=== PATIENT | female | born 1980 | race Caucasian/White ===

== ENCOUNTER → 2017-12-23 | Outpatient (CLI) | payer OTHER ==
[~2017-12-23] MED LIST: CEPH-13 PO; PREN-127 PO
[2017-12-23 14:57] LABS: PLATELET COUNT, AUTOMATED 309 K/uL (150-450)
== END ==
LOC: LAB 14:03
PROVIDERS: ATTEND Obstetrics & Gynecology
DX: Z34.91 Encounter for supervision of normal pregnancy, unspecified, first trimester (principal)
CPT/HCPCS: 36415; 81025; 85025; 86592; 86762; 86850; 86900; 86901; 87088; 87340

== ENCOUNTER → 2018-03-27 | Outpatient (CLI) | payer OTHER ==
--- NOTE | 2018-03-27 17:56 | RADIOLOGY IMAGING REPORT ---
FACILITY: [facility] PATIENT NAME: Brielle Jc : 1980 MR: [id number] V: [id number] EXAM DATE: ORDERING PHYSICIAN: KARSTEN PECK TECHNOLOGIST: Location: [facility] [place] Patient: Brielle Jc : 1980 Visit/Account:[id number] Date of Sevice: 03/27/2018 EXAMINATION: Transabdominal OB Ultrasound >14 wks with Anatomic Survey 03/27/2018 11:04 AM History: OB anatomical survey COMPARISON: None FINDINGS: Intrauterine gestations: one presentation: breech heart rate: 139 bpm Amniotic fluid index: 17.0 cm Largest amniotic fluid pocket 5.6 cm Placenta: Posterior without previa. Placental cord insertion is normal. Uterus: gravid, otherwise normal Maternal adnexa: negative Cervix: Closed, 4.6 cm Gestational Parameters: BPD: 4.8 cm 20 weeks 5 days HC: 18.6 cm 21 weeks 0 days AC: 16.1 cm 20 weeks 2 days FL: 3.5 cm 21 weeks 0 days Average ultrasound age (AUA): 1 week 0 days Estimated gestational age by LMP: 20 weeks 6 days Estimated weight (EFW): 396 grams +/- 58 grams EFW for LMP percentile: 56 Anatomic Survey: Intracranial structures, nose and lips, 4-chamber heart and outflow tracts, stomach, kidneys, urinary bladder, spine, 3-vessel cord and cord insertion are unremarkable. Two upper and two lower extremiti es visualized. IMPRESSION: 1. Single live intrauterine gestation; estimated ultrasound age 20 weeks 0 days (EVELYN 08/07/2018) whic h correlates well with expected dates. 2. Unremarkable anatomic survey. Report Dictated By: Angel Christy MD at 03/27/2018 5:49 PM Report E-Signed By: Angel Christy MD at 03/27/2018 5:53 PM WSN:ANGEL
== END ==
LOC: RAD 10:55
PROVIDERS: ATTEND Obstetrics & Gynecology
DX: Z02.9 Encounter for administrative examinations, unspecified (principal)
CPT/HCPCS: 76811

== ENCOUNTER → 2018-05-13 | Outpatient (CLI) | payer OTHER ==
[2018-05-13 15:03] LABS: PLATELET COUNT, AUTOMATED 249 K/uL (150-450)
== END ==
LOC: LAB 07:50
PROVIDERS: ATTEND Obstetrics & Gynecology
DX: O09.519 Supervision of elderly primigravida, unspecified trimester (principal)
CPT/HCPCS: 36415; 82950; 85025

== ENCOUNTER 2018-07-09 01:48 | Inpatient (IN) | payer OTHER ==
[~2018-07-09] VITALS: Ht 162.6 cm; Wt 70.3 kg
[~2018-07-09 01:48] MED LIST changes: +DIPH0.5D12 IM; +FLU60SYR36 IM
[2018-07-09] MEDS ORDERED: LR(*) 1000 ML BAG 1,000 ML IV PRN (01:50)
[2018-07-09 02:30] VITALS: BP 123/88; Ht 162.6 cm; Wt 70.3 kg
[2018-07-09] MEDS: LR(*) 1000 ML BAG 1,000 ML IV SCH ×2 (02:50→07:53)
[2018-07-09] MEDS ORDERED: fentaNYL CITR 100 MCG/2 ML AMP IVP PRN (02:50)
[2018-07-09] MEDS ORDERED: LIDOCAINE/SOD BICARB 8.4% SYR SC PRN (02:50)
[2018-07-09] MEDS ORDERED: ceFAZolin(*) 2GM/D5W 50ML 50 ML IVPB PRN (02:50)
[2018-07-09] MEDS ORDERED: FAMOTIDINE(*) 20MG/50ML PREMIX 50 ML IVPB PRN (02:50)
[2018-07-09] MEDS ORDERED: OXYTOCIN 30 UNIT/D5LR 500 ML 500 ML IV PRN (02:50)
[2018-07-09] MEDS ORDERED: METOCLOPRAMIDE 10 MG/2 ML SDV IVP PRN (02:50)
[2018-07-09] MEDS ORDERED: PENICILLIN G 5 MILLUN/100 ML 100 ML IVPB ONE (02:50)
[2018-07-09] MEDS ORDERED: LIDOCAINE 1% LOCAL 300 MG/30ML INJ PRN (02:50)
[2018-07-09] MEDS ORDERED: PENICILLIN G 5 MILLUN/100 ML 100 ML ONE (02:57)
[2018-07-09] MEDS ORDERED: BETAMETHASONE/ACETATE 6 MG/1ML ONE (03:04)
[2018-07-09 03:17] LABS: PLATELET COUNT, AUTOMATED 232 K/uL (150-450)
--- NOTE | 2018-07-09 03:40 | History & Physical ---
History of Present Illness EDC per LMP: Aug 08, 2018 Estimated Gestational Age: 35.5 Chief Complaint Leaking fluid History of Present Illness 37-year-old at 35w5d with ROM. She noticed a change in her discharge at 2230hrs last night. She then woke up with watery discharge at 0100hrs today. She is feeling cramping. She denies vaginal bleeding. She reports movement. PNC by IMG. PNR reviewed. complicated by AMA - cfDNA testing was normal with a female fetus. History Patient's Blood Type: A Positive Rubella Status: Immune Group B Strep Screen: Unknown Obstetrical History: Primip Past Medical History: None Allergies: Coded Allergies: No Known Drug Allergies (Unverified , 03/19/15) Social History: No T/E/D. Partner involved and supportive. Family History: FH: breast cancer MOTHER (at age 52) FH: cardiovascular disease MOTHER FH: hypertension FATHER High cholesterol FATHER MOTHER Med Rec Home Meds Reported Medications Vits W-Ca,Fe,Fa(<1MG) ( VITAMINS) 1 Each Tablet, 1 EACH PO DAILY, TAB 12/23/17 Review of Systems Constitutional: No Fever Eyes: No Vision Change Cardiovascular: No Chest Pain Respiratory: Cough; No Shortness of Breath, No Wheezing Gastrointestinal: No Nausea, No Vomiting, No Diarrhea Genitourinary: No Dysuria Musculoskeletal: No Pain Psychiatric: Anxiety; No Depression Exam General Exam Vital Signs Vital Signs Date Time Temp Pulse Resp B/P (MAP) Pulse Ox O2 Delivery O2 Flow Rate FiO2 07/09/18 02:30 97.8 90 18 123/88 (100) 97 Room Air General Apperance: Alert/Awake/No Acute Distress Neuro: No Gross deficits Eyes: Normal Extraocular Movement & Vison Cardiovascular: Regular Rate and Rhythm Respiratory: Clear to Auscultation Abdomen: Gravid - Non-Tender : Normal Musculoskeletal: No Weakness/Pain Extremities: No Cyanosis,Clubbing or Edema Integumentary: Skin Intact without Lesions or Rash Psychological: Alert & Oriented X3, Appropriate Mood & Affect Vaginal Discharge/Fluid?: Clear Fluid Cervical Dialation: 3 Cervical Effacement (%): 80 Cervical Consistency: Moderate Cervical Position: Posterior Station: -2 Presentation: Vertex Uterine Contractions(Q min): 4 Uterine Contraction Strength: Mild UC Resting Tone: Soft Fetus Feeling Movement?: Yes FHT Category: I Medical Decision Making Data Points Result Diagram: 07/09/18 0301 Pre-Admit Course Medical Record Review: Yes VTE Prophylasis: Adult Deep Vein Thrombosis/Pulmonary: No Pharmacological Contraindicati: Pt at Low Risk for VTE Mechanical Contraindications: Pt at Low Risk for VTE Assessment and Plan Problems: (1) premature rupture of membranes (PPROM) with unknown onset of labor Assessment & Plan: 37-year-old at 35w5d with ROM. She is chan although not painfully. She has accepted GBS prophylaxis and betamethasone for the baby. Discussed plan to proceed with expectant management initially today. Her boyfriend is in [place] and has changed his flight to arrive in [place] at 1400hrs today. Will augment if needed later. (2) 35 weeks gestation of KARSTEN PECK MD Jul 09, 2018 03:40
[2018-07-09] MEDS ORDERED: PENICILLIN G 2.5 MILLUN/100 ML 100 ML IVPB SCH ×2 (07:00)
--- NOTE | 2018-07-09 08:35 | Labor Progress Note ---
Labor Subjective Progress Notes Subjective Her contractions are getting more painful. She has experienced 2 recent episodes of vomiting. Labor Objective Vital Signs Vital Signs Date Time Temp Pulse Resp B/P (MAP) Pulse Ox O2 Delivery O2 Flow Rate FiO2 07/09/18 02:30 97.8 90 18 123/88 (100) 97 Room Air Vaginal Discharge/Fluid?: Clear Fluid Cervical Dialation: 6 Cervical Effacement (%): 100 Cervical Consistency: Soft Cervical Position: Mid Station: 0 Presentation: Vertex Uterine Contractions(Q min): 3 Uterine Contraction Strength: Strong UC Resting Tone: Soft Fetus FHT Category: I General Exam General Appearance: Alert/Awake/No Acute Distress Abdomen: Gravid - Non-Tender Musculoskeletal: No Weakness/Pain Extremities: No Cyanosis,Clubbing or Edema Integumentary: Skin Intact without Lesions or Rash Psychological: Alert & Oriented X3, Appropriate Mood & Affect Other Result Diagram: 07/09/18 0301 Assessment and Plan Problems: (1) premature rupture of membranes (PPROM) with unknown onset of labor Assessment & Plan: Pt is progressing well. Anticipate . (2) 35 weeks gestation of KARSTEN PECK MD Jul 09, 2018 08:35
[2018-07-09] MEDS ORDERED: BETAMETHASONE/ACETATE 6 MG/1ML IM SCH (09:00)
--- NOTE | 2018-07-09 09:57 | Labor Progress Note ---
Labor Subjective Progress Notes Subjective Pt is feeling the urge to push. Labor Objective Vital Signs Vital Signs Date Time Temp Pulse Resp B/P (MAP) Pulse Ox O2 Delivery O2 Flow Rate FiO2 07/09/18 02:30 97.8 90 18 123/88 (100) 97 Room Air Vaginal Discharge/Fluid?: Clear Fluid Cervical Dialation: 10 Station: +3 Presentation: Vertex Uterine Contractions(Q min): 3 Uterine Contraction Strength: Strong UC Resting Tone: Soft Fetus FHT Category: I General Exam General Appearance: Alert/Awake/No Acute Distress Abdomen: Gravid - Non-Tender Extremities: No Cyanosis,Clubbing or Edema Integumentary: Skin Intact without Lesions or Rash Psychological: Alert & Oriented X3, Appropriate Mood & Affect Other Result Diagram: 07/09/18 0301 Assessment and Plan Problems: (1) premature rupture of membranes (PPROM) with unknown onset of labor Assessment & Plan: Pt is complete. She is pushing effectively. Anticipate . (2) 35 weeks gestation of KARSTEN PECK MD Jul 09, 2018 09:57
[2018-07-09] MEDS ORDERED: ACETAMINOPHEN 325 MG TAB PO PRN (10:50)
[2018-07-09] MEDS ORDERED: GLYCERIN/WITCH HAZEL LEAF 1 PK TP PRN (10:50)
[2018-07-09] MEDS ORDERED: LANOLIN OINT 7 GM TUBE TP PRN (10:50)
[2018-07-09] MEDS ORDERED: MAGNESIUM HYDROXIDE* 30ML UDCP PO PRN (10:50)
[2018-07-09] MEDS ORDERED: BENZOCAINE 20% 60 ML BTL TP PRN (10:50)
[2018-07-09] MEDS ORDERED: APAP/HYDROCODONE 325/5 TAB PO PRN (10:50)
[2018-07-09] MEDS ORDERED: HYDROCORTISONE 2.5% CR 30GM TB PR PRN (10:50)
--- NOTE | 2018-07-09 10:53 | OB Delivery Note ---
Delivery Note Vaginal Delivery Type: Spont. Vaginal Delivery Delivery Date: Jul 09, 2018 Delivery Time: 10:22 Estimated Gestational Age(wks): 35.5 Length of Labor Stage II (hrs): 1 Labor Stage III (minutes): 3 Delivery Anesthesia: Local Sex: Female Infant Weight (gms): 2130 (5#12oz) Apgars: 1 Minute (8), 5 Minute (8) Estimated Blood Loss: 200 Notes: Presented with PPROM at 2230hrs on 07/10/18. Progressed on her own to complete at 0930. Fagot Heater in Attendence: Yes KARSTEN PECK MD Jul 09, 2018 10:53
[2018-07-09] MEDS: IBUPROFEN 800 MG TAB PO SCH ×2 (11:40→19:44)
[2018-07-09] MEDS ORDERED: LIDOCAINE 1% LOCAL 300 MG/30ML 30 ML ONE (11:45)
[2018-07-09 14:12] VITALS: BP 120/69
[2018-07-09] MEDS ORDERED: LOR5/325 PO (16:26)
[2018-07-09] MEDS ORDERED: IBUP800T37 PO (16:26)
[2018-07-09 17:40] VITALS: BP 118/69
[2018-07-09 20:30] VITALS: BP 127/74
[2018-07-09] MEDS: DOCUSATE CALCIUM 240 MG CAP PO SCH (21:00)
[2018-07-10 00:10] VITALS: BP 107/56
[2018-07-10 04:50] VITALS: BP 109/65
[2018-07-10 07:27] VITALS: BP 109/61
--- NOTE | 2018-07-10 08:33 | OB/GYN Progress Note ---
OB Subjective Progress Notes Subjective Doing good PPD # 1. Pt reports that she is tolerating PO intake. Ambulatory. Voiding with out any difficulty. Lochia appropriate. seems to be going good. No concerns or questions. Wondering about getting discharged and staying with baby. GI: NEG Nausea, NEG Vomiting, NEG Flatus, NEG Bowel Movement : Voiding Well, Vaginal Bleeding, Scant Pain: Mild, Tolerating PO Pain Meds Neurological: No Headache, No Other Eyes: No Visual Disturbances OB Objective Physical Exam Vital Signs Date Time Temp Pulse Resp B/P (MAP) Pulse Ox O2 Delivery O2 Flow Rate FiO2 07/10/18 07:27 71 16 109/61 (77) Room Air 07/10/18 04:50 98.3 93 Intake and Output 07/10/18 07:00 Intake Total 710 ml Balance 710 ml Intake IV Total 710 ml # Voids 2 General Appearance: Alert/Awake/No Acute Distress Neurological: No Gross deficits Eyes: Normal Extraocular Movement & Vison Cardiovascular: Normal Rhythm & Peripheral Pulses Respiratory: No Respiratory Distress, Clear to Auscultation Abdomen: Fundus Firm Musculoskeletal: No Weakness/Pain Extremities: No Cyanosis,Clubbing or Edema Integumentary: Skin Intact without Lesions or Rash Psychological: Alert & Oriented X3, Appropriate Mood & Affect Result Diagram: 07/09/18 0301 Assessment and Plan SIMONIZER Assessment: Stable Problems: (1) premature rupture of membranes (PPROM) with unknown onset of labor Assessment & Plan: day #1. Patient doing very well reports appropriate lochia and no difficulty with breast-feeding. Infant is having some difficulty staying awake for the entirety of breast-feeding but otherwise fine. Pain control by mouth pain medications. Patient is considering going to rooming in status today. (2) 35 weeks gestation of INDIRA PEÑA DO Jul 10, 2018 08:33
[2018-07-10] MEDS: DOCUSATE CALCIUM 240 MG CAP PO SCH ×2 (08:54→20:27)
[2018-07-10] MEDS ORDERED: MEASLES,MUMP,RUBELLA VAC 0.5ML SUBQ ONE (10:50)
[2018-07-10] MEDS ORDERED: DIPHTH/TETANUS/ACEL. PERTUSSIS IM ONLY ONE (10:50)
[2018-07-10] MEDS ORDERED: INFLUENZA VIRUS VAC 0.5ML SYR IM ONLY ONE (10:50)
[2018-07-10] MEDS: IBUPROFEN 800 MG TAB PO SCH ×2 (11:39→20:27)
--- NOTE | 2018-07-10 13:23 | DELIVERY NOTE ---
DELIVERY DATE: July 09, 2018 SURGEON: Rachelle Burnham MD ANESTHESIOLOGIST: ANESTHESIA: Local infiltration of 1% lidocaine. PREOPERATIVE DIAGNOSIS: Intrauterine at 35 weeks and 5 days presenting with PPROM. POSTOPERATIVE DIAGNOSIS: 1. Intrauterine at 35 weeks and 5 days presenting with PPROM. 2. Delivery of viable female infant at 1022 hours, weighing 5 pounds 12 ounces with Apgars of 8 at one minute and 8 at five minutes. PROCEDURE Spontaneous vaginal delivery. ESTIMATED BLOOD LOSS 200 cc. INDICATIONS This patient is a 37-year-old 1, para 0 who presented at 35 weeks and 5 days of complaints of spontaneous rupture of membranes with clear fluid. She was noted to be 3 cm dilated, 80% effaced and -1 station. She was initiated on Group B strep prophylaxis with Penicillin and administered one dose of betamethasone. She then was allowed to progress on her own and was noted to be complete at 0930 hours, at which time she was allowed to push. She did not elect for any anesthesia. PROCEDURE The patient was properly identified and placed in the dorsal lithotomy position. She was pushing and was able to bring the 's vertex to the perineum. She was able to deliver the 's vertex over an intact perineum in the POWELL position. A nuchal cord was checked but not noted. The anterior shoulder delivered easily followed by the posterior shoulder. The remainder of the infant was then easily delivered. The infant had spontaneous cry and spontaneous movement of all four extremities. The infant's oropharynx and nasopharynx were bulb suctioned. The infant was dried, stimulated and passed to the mother's abdomen, where nursing personnel and Dr. Rodríguez were present. After two minutes, the cord was clamped x2 and cut. Cord blood was then obtained to pass off the table. The placenta subsequently delivered intact spontaneously and was passed off the table. This occurred after starting Pitocin through the IV fluid to help firm the uterus. Examination of the cervix, vaginal vault and perineum revealed a second degree midline laceration, which was repaired using a 3-0 Vicryl after infiltration of 1% lidocaine without epinephrine. The patient tolerated the procedure well and recovered in Labor and Delivery with her infant. AREN
[2018-07-10 14:30] VITALS: BP 103/55
--- NOTE | 2018-07-10 16:48 | OB/GYN Discharge Summary ---
INDIRA PEÑA DO 07/10/18 1648: Discharge Summary Reason for Hosp/Final Diag: (1) premature rupture of membranes (PPROM) with unknown onset of labor Hospital Course & Plan: Patient presented to the labor and delivery unit with a chief complaint of loss of fluid. Patient was found to have premature rupture membranes. Patient was given betamethasone was started on penicillin for GBS prophylaxis. Patient was never augmented with Pitocin and did spontaneously began chan and eventually delivered a liveborn female infant. See delivery note for details procedure patient remained in the hospital for 2 days where she was meeting goals and guidelines and was discharged to rooming status with her premature . Patient to follow up with Dr. Burnham in 2-3 weeks. (2) 35 weeks gestation of Lates Vital Signs Vital Signs Date Time Temp Pulse Resp B/P (MAP) Pulse Ox O2 Delivery O2 Flow Rate FiO2 07/10/18 14:30 75 16 103/55 (71) Room Air 07/10/18 04:50 98.3 93 Weight (Pounds): 155 Result Diagram: 07/09/18 030 Condition: Improved Home Meds Active Scripts Hydrocodone Bit/Acetaminophen (HYDROCODON-ACETAMINOPHEN 5-325) 1 Each Tablet, 1 EACH PO Q4-6H PRN for pain, #20 TAB 0 Refills Prov:KARSTEN BURNHAM MD 07/09/18 Ibuprofen (IBUPROFEN) 800 Mg Tablet, 1 TAB PO Q8H PRN for pain, #30 TAB 0 Refills TAKE WITH FOOD EVERY 8 HOURS Prov:KARSTEN BURNHAM MD 07/09/18 Reported Medications Vits W-Ca,Fe,Fa(<1MG) ( VITAMINS) 1 Each Tablet, 1 EACH PO DAILY, TAB 12/23/17 Follow up with: [facility] [place] [phone], Dr. Burnham [phone] Follow up in: 2 wks PO Discharge Diet: As Tolerates, Resume Prior Admit Diet, Increase Fluid Intake Discharge Activity: As Tolerates, Pelvic Rest COSME OSWALD 07/11/18 1150: Discharge Summary Result Diagram: 07/09/18 0301 Discharge: Self Half-Way Meds Active Scripts Hydrocodone Bit/Acetaminophen (HYDROCODON-ACETAMINOPHEN 5-325) 1 Each Tablet, 1 EACH PO Q4-6H PRN for pain, #20 TAB 0 Refills Prov:KARSTEN BURNHAM MD 07/09/18 Ibuprofen (IBUPROFEN) 800 Mg Tablet, 1 TAB PO Q8H PRN for pain, #30 TAB 0 Refills TAKE WITH FOOD EVERY 8 HOURS Prov:KARSTEN BURNHAM MD 07/09/18 Reported Medications Vits W-Ca,Fe,Fa(<1MG) ( VITAMINS) 1 Each Tablet, 1 EACH PO DA AUDREY, TAB 12/23/17 Follow up with: [facility] [place] [phone], Dr. Burnham [phone] Discharge Diet: As Tolerates Discharge Activity: As Tolerates, Pelvic Rest Special Instructions: No driving on narcotic pain medication. Follow-up with Dr. Burnham in 2 weeks. INDIRA PEÑA DO Jul 10, 2018 16:48 COSME OSWALD Jul 11, 2018 11:50
[2018-07-10 20:35] VITALS: BP 124/61
[2018-07-11] MEDS: IBUPROFEN 800 MG TAB PO SCH ×2 (04:31→11:27)
[2018-07-11 04:40] VITALS: BP 117/70
[2018-07-11 08:22] VITALS: BP 112/67
[2018-07-11] MEDS: DOCUSATE CALCIUM 240 MG CAP PO SCH (10:07)
--- NOTE | 2018-07-11 11:48 | OB/GYN Progress Note ---
OB Subjective Progress Notes Subjective 37-year-old at 35w5d with ROM, now post day 1. Doing well, vaginal bleeding slowed. Tolerating PO, no nausea/vomiting. Voiding well. Baby breast feeding. GI: POS Flatus; NEG Nausea, NEG Vomiting, NEG Bowel Movement : Voiding Well, Vaginal Bleeding, Moderate Pain: Moderate, Tolerating PO Pain Meds Neurological: No Headache OB Objective Physical Exam Vital Signs Date Time Temp Pulse Resp B/P (MAP) Pulse Ox O2 Delivery O2 Flow Rate FiO2 07/11/18 04:40 98.2 89 14 117/70 (86) 93 Room Air Intake and Output 07/11/18 07:00 Intake Total 458 ml Balance 458 ml Intake Oral 458 ml General Appearance: Alert/Awake/No Acute Distress Cardiovascular: Normal Rhythm & Peripheral Pulses Respiratory: No Respiratory Distress, Clear to Auscultation Abdomen: Soft, Non-Tender, Non-Distended, Fundus Firm Musculoskeletal: No Weakness/Pain Extremities: No Cyanosis,Clubbing or Edema Integumentary: Skin Intact without Lesions or Rash Psychological: Appropriate Mood & Affect Result Diagram: 07/09/18 0301 Assessment and Plan Post Day: 1 SWING DRIVER Plan: Routine Post- Care, Discharge Home Today Problems: (1) 35 weeks gestation of (2) premature rupture of membranes (PPROM) with unknown onset of labor (3) examination following vaginal delivery Assessment & Plan: Doing well post-. Plan to discharge in room as pre- term will likely need more stay. Follow-up in [address] Burnham. COSME OSWALD Jul 11, 2018 08:09
== END 2018-07-11 17:10 | disposition home or self-care (01) | DRG 807 ==
LOC: OB 01:48 → OBSVTOIN 01:48
PROVIDERS: ADMIT Obstetrics & Gynecology; ATTEND Obstetrics & Gynecology
PROC: 10E0XZZ Delivery of Products of Conception, External Approach (ICD-10-PCS; principal; 2018-07-09)
PROC: 0KQM0ZZ Repair Perineum Muscle, Open Approach (ICD-10-PCS; 2018-07-09)
DX: O42.013 Preterm premature rupture of membranes, onset of labor within 24 hours of rupture, third trimester (principal); Z37.0 Single live birth; O70.1 Second degree perineal laceration during delivery; Z3A.35 35 weeks gestation of pregnancy
CPT/HCPCS: 81001; 84112; 85025; 86703; 86850; 86900; 86901; J0702; J2001; J2540; J2590; J7120